=== PATIENT | male | born 1990 | race Caucasian/White ===

== ENCOUNTER 2017-06-18 18:50 | Emergency (ER) | payer OTHER ==
[2017-06-18 19:11] VITALS: BP 140/96; PULSE 110; TEMP 98.1; BMI 27.7
[2017-06-18] MEDS ORDERED: predniSONE 20 MG TABLET (UD) PO ONE (19:56)
--- NOTE | 2017-06-18 20:01 | PDOC ---
History of Present Illness - General History Source: Patient Exam Limitations: No Limitations - History of Present Illness Initial Comments: 06/18/17 20:08 The patient is a 27 year old male who presents to the ED with one day of rash that began yesterday. The patient states that 3 weeks ago [place] in the [facility] when he contracted poison dotty in which he was treating with a course of prednisone, which he has since finished. The patients rash began improving with the steroids, however the patient woke up last night around 2 am with a new, different rash on his trunk. Along with the rash he experienced swelling in his fingers, difficulty swallowing, and headache. Although most of these symptoms subsided this afternoon, the rash still persists. He states that his new rash is unlike the poison dotty and is not as itchy. He reports treating the rash with hydrocortisone cream. The reports hes been taking Centrum vitamins the past two days but denies using any new soaps/ detergents or new foods. The patient denies any recent illness, fever, chills or sick contacts. <Sabine Iniguez - Last Filed: 06/18/17 20:08> <Shasta Osorio - Last Filed: 06/18/17 23:22> - General Chief Complaint: Rash Stated Complaint: SORE THROAT, RASH Time Seen by Provider: 06/18/17 19:08 Past History <Sabine Iniguez - Last Filed: 06/18/17 20:08> - Past Medical History Other medical history: DENIES - Psycho/Social/Smoking Cessation Hx Anxiety: No Suicidal Ideation: No Smoking History: Current some day smoker Have you smoked in the past 12 months: Yes Number of Cigarettes Smoked Daily: 1 Information on smoking cessation initiated: Yes 'Breaking Loose' booklet given: 06/18/17 <Shasta Osorio - Last Filed: 06/18/17 23:22> - Past Medical History Allergies/Adverse Reactions: Allergies Allergy/AdvReac Type Severity Reaction Status Date / Time No Known Allergies Allergy Unverified 06/18/17 18:54 Home Medications: Ambulatory Orders Prednisone [Deltasone -] 20 mg PO BID #8 tablet 06/18/17 Triamcinolone 0.1% Cream [Aristocort 0.1% Cream -] 1 gm TP BID #1 tube 06/18/17 Review of Systems - Review of Systems Able to Perform ROS?: Yes Comments:: 06/18/17 20:10 GENERAL/CONSTITUTIONAL: No fever or chills. No weakness. HEAD, EYES, EARS, NOSE AND THROAT: Present: difficulty swallowing No change in vision. No ear pain or discharge. CARDIOVASCULAR: No chest pain or shortness of breath. RESPIRATORY: No cough, wheezing, or hemoptysis. GASTROINTESTINAL: No nausea, vomiting, diarrhea or constipation. GENITOURINARY: No dysuria, frequency, or change in urination. MUSCULOSKELETAL: No joint or muscle swelling or pain. No neck or back pain. SKIN: Present: rash NEUROLOGIC: Present: headache No vertigo, loss of consciousness, or change in strength/sensation. ENDOCRINE: No increased thirst. No abnormal weight change. HEMATOLOGIC/LYMPHATIC: No anemia, easy bleeding, or history of blood clots. ALLERGIC/IMMUNOLOGIC: No hives or skin allergy. All Other Systems: Reviewed and Negative <Sabine Iniguez - Last Filed: 06/18/17 20:08> *Physical Exam - Vital Signs Last Vital Signs Temp Pulse Resp BP Pulse Ox 98.1 F 110 H 16 140/96 97 06/18/17 18:55 06/18/17 18:55 06/18/17 18:55 06/18/17 18:55 06/18/17 18:55 - Physical Exam Comments: 06/18/17 20:14 GENERAL: Awake, alert, and fully oriented, in no acute distress HEAD: No signs of trauma EYES: PERRLA, EOMI, sclera anicteric, conjunctiva clear ENT: Auricles normal inspection, hearing grossly normal, nares patent. Pharynx is mildly erythematous 1+ enlarged tonsils bilaterally, no exudates or masses, uvula is midline. NECK: Normal ROM, supple, no lymphadenopathy, JVD, or masses LUNGS: Breath sounds equal, clear to auscultation bilaterally. No wheezes, and no crackles HEART: Regular rate and rhythm, normal S1 and S2, no murmurs, rubs or gallops ABDOMEN: Soft, nontender, normoactive bowel sounds. No guarding, no rebound. No masses EXTREMITIES: Normal range of motion, no edema. No clubbing or cyanosis. No cords, erythema, or tenderness NEUROLOGICAL: Cranial nerves II through XII grossly intact. Normal speech, normal gait SKIN: Scattered scaly plaques of the volar surfaces of bilat distal forearms, and bilat distal lower legs and feet. Scattered, mildly erythematous, maculo papular rash of the anterior/posterior torso . <HiraSabine - Last Filed: 06/18/17 20:08> - Vital Signs Last Vital Signs Temp Pulse Resp BP Pulse Ox 98.1 F 110 H 16 140/96 97 06/18/17 18:55 06/18/17 18:55 06/18/17 18:55 06/18/17 18:55 06/18/17 18:55 <DevonShasta [place] - Last Filed: 06/18/17 23:22> Medical Decision Making - Medical Decision Making Documentation has been prepared under my direction and personally reviewed by me in its entirety. I attest that this documented accurately reflects all work, treatment, procedures and medical decision making performed by me. As noted above, this otherwise healthy 27-year-old man presents with new rash of the torso. Patient had onset of contact dermatitis (poison dotty type) 2-3 weeks ago, sustained when he was camping [id number]. This rash was on distal extremities. He was seen elsewhere last week and seven-day course of prednisone 48 hours ago. While poison dotty rash was extremely pruritic, current rash is only mildly so. He has not had any other associated symptoms with current torso rash except for vague sensation of foreign body in his throat. He has had no other facial edema, stridor/wheezing or difficulty breathing. Exam as noted. Pharyngeal exam reveals no edema and there is no evidence of stridor/wheezing. There is a faint erythematous maculo-papular rash of the anterior and posterior torso. The previous rash appears to be healing well without evidence of secondary infection Etiology of the new rash is unclear. Since patient has been fully immunized( according to family member had full medical clearance on immigration to this country recently) and no prodromal syndrome consistent with viral origin, likely that patient has ALLERGIC dermatologic reaction. The only new medication patient has had in recent days is a few doses of Centrum vitamins. Since the patient mentioned a sensation of foreign body in throat (although there was no evidence of airway involvement on exam), we will start the patient back on prednisone 40 mg daily. First dose will be given here in the emergency room and prescription for the next 4 days will be sent to his pharmacy. Patient is already scheduled to see his general medical doctor on June 20. If he experiences any increase throat discomfort, shortness of breath , wheezing or severe itching, he should return to the emergency room. <Shasta Osorio - Last Filed: 06/18/17 23:22> *DC/Admit/Observation/Transfer - Attestations Scribe Attestion: 06/18/17 20:19 Documentation prepared by Sabine Iniguez, acting as biomedical engineering supervisor for Shasta Osorio MD. <Sabine Iniguez - Last Filed: 06/18/17 20:08> <Shasta Osorio - Last Filed: 06/18/17 23:22> Diagnosis at time of Disposition: Allergic dermatitis - Discharge Dispostion Disposition: HOME Condition at time of disposition: Stable - Prescriptions Prescriptions: Triamcinolone 0.1% Cream [Aristocort 0.1% Cream -] 1 gm TP BID #1 tube Prednisone [Deltasone -] 20 mg PO BID #8 tablet - Patient Instructions Printed Discharge Instructions: DI for General Allergic Reactions Additional Instructions: Prednisone 20 mg twice a day for 4 days (take with food) Can use triamcinolone cream twice a day on rash if needed for itching Avoid using any new medication/vitamins/detergents or soaps until seen by your general doctor Follow-up with your general doctor on June 20 as scheduled Return to emergency room if you have difficulty swallowing/severe itching/fever or chills
[2017-06-18] MEDS ORDERED: predniSONE 20 MG TABLET (UD) ONE (20:09)
== END 2017-06-18 20:14 | disposition home or self-care (01) ==
LOC: FER 18:50
DX: L23.9 Allergic contact dermatitis, unspecified cause (principal); F17.210 Nicotine dependence, cigarettes, uncomplicated
CPT/HCPCS: 99282-25